=== PATIENT | female | born 1970 | race American Indian/Alaskan Native ===

== ENCOUNTER 2016-12-01 09:04 | Day surgery (SDC) | payer BC ==
[2016-12-01 10:18] VITALS: BMI 20.7
[2016-12-01] MEDS ORDERED: Lidocaine 2% Inj (20ml) ONE (12:16)
[2016-12-01] MEDS ORDERED: Propofol 10 mg/ml Inj (20 ML) ONE ×2 (12:17→12:32)
[2016-12-01 13:30] VITALS: O2SAT 100
[2016-12-01 14:14] VITALS: BP 112/66; PULSE 89; RESP 21; TEMP 97.5
== END 2016-12-01 14:10 | disposition home or self-care (01) ==
LOC: C.ENDO 09:04
PROVIDERS: ATTEND Internal Medicine Gastroenterology
DX: K29.70 Gastritis, unspecified, without bleeding (principal); K64.8 Other hemorrhoids; K57.90 Diverticulosis of intestine, part unspecified, without perforation or abscess without bleeding
CPT/HCPCS: 43239; 45378; 84703; 88305; 88313; 88342; J2704

== ENCOUNTER 2017-02-01 14:09 | Emergency (ER) | payer BC ==
[2017-02-01 14:09] VITALS: BMI 20.7
[2017-02-01 14:19] VITALS: TEMP 98.1; O2SAT 98
--- NOTE | 2017-02-01 14:48 | C.PDOC ---
History Of Present Illness 46 yr old female presents to the ER for new onset of pain and swelling to the front of left lower leg for the past few days. Patient states she walks a lot and the pain is worse when she points her foot. Patient denies trauma or injury , back pain, weakness or numbness. Time Seen by Provider: 02/01/17 14:29 Chief Complaint (Nursing): Lower Extremity Problem/Injury History Per: Patient History/Exam Limitations: no limitations Onset/Duration Of Symptoms: Days (Few days. 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 Musculoskeletal: Positive for: Leg Pain (Pain and swelling to the front of left lower leg ), Foot Pain (Pain when pointing the left foot ). Negative for: Back Pain Neurological: Negative for: Weakness, Numbness Physical Exam - Physical Exam Appears: Non-toxic, No Acute Distress Skin: Warm, Dry, No Rash Head: Atraumatic, Normacephalic Oral Mucosa: Moist Extremity: No Calf Tenderness, Other (Left Lower Leg - Mild swelling to the anterior distal aspect. Tenderness, reproducibe pain. No erythema. Reproducible pain with dorsi flexion. ) Pulses: Left Dorsalis Pedis: Normal, Right Dorsalis Pedis: Normal Neurological/Psych: Oriented x3, Normal Speech, Normal Motor ED Course And Treatment O2 Sat by Pulse Oximetry: 98 (RA ) Pulse Ox Interpretation: Normal Medical Decision Making Medical Decision Making: PLAN: * Toradol IM NOTE: Patient was offered XRays but chose to decline. Advised NSAIDs, ice therapy and crutches. Disposition Counseled Patient/Family Regarding: Diagnosis, Need For Followup, Rx Given - Disposition Referrals: [facility] [Outside] [facility] [Outside] Disposition: HOME/ ROUTINE Disposition Time: 14:46 Condition: IMPROVED Prescriptions: Cyclobenzaprine [Flexeril] 10 mg PO TID #15 tab Ibuprofen [Motrin] 600 mg PO Q6 #30 tab Instructions: Tendinitis (ED) Forms: Work Excuse - Clinical Impression Clinical Impression: Tibialis tendonitis - Scribe Statement The provider has reviewed the documentation as recorded by the Chiibe Jennifer Simmons Provider Attestation: All medical record entries made by the Ernie were at my direction and personally dictated by me. I have reviewed the chart and agree that the record accurately reflects my personal performance of the history, physical exam, medical decision making, and the department course for this patient. I have also personally directed, reviewed, and agree with the discharge instructions and disposition. Orthopedic Care Application Of:: Gal Bandage - Ambulation Aids Ambulation Aids: Adult Crutches
[2017-02-01 15:18] VITALS: BP 124/72; PULSE 79; RESP 18
== END 2017-02-01 15:19 | disposition home or self-care (01) ==
LOC: SUPCPDRO 14:09 → C.ER 14:09
DX: M76.822 Posterior tibial tendinitis, left leg (principal)
CPT/HCPCS: 96372; 97116; 97161; 99285; G8978; G8979; G8980; J1885

== ENCOUNTER 2017-06-21 16:40 | Emergency (ER) | payer BC ==
[2017-06-21 16:40] VITALS: BMI 20.7
[2017-06-21 17:08] VITALS: BP 98/70; PULSE 83; RESP 20; TEMP 97.9; O2SAT 98
[2017-06-21 17:37] LABS: RBC URINE 10 /hpf (0-3); URINE BILIRUBIN NEGATIVE (NEGATIVE); URINE BLOOD 1+ (NEGATIVE); URINE COLOR Straw (YELLOW); URINE GLUCOSE (UA) NORMAL (Normal); URINE KETONE NEGATIVE (NEGATIVE); URINE LEUKOCYTE ESTERASE NEG Leu/uL (Negative); URINE PROTEIN NEGATIVE (NEGATIVE); URINE UROBILINOGEN NORMAL mg/dL (0.2-1.0); WBC URINE 1 /hpf (0-5)
--- NOTE | 2017-06-21 17:46 | C.PDOC ---
History Of Present Illness 47 year old female presents to the ED for evaluation of right lower back pain x 2 weeks. Patient states pain is worse with movement and localized. She denies known trauma. Symptoms are worse with sitting. Denies fever, burning, urinary frequency, or other associated symptoms. R LOWER BACK PAIN X 2 WEEKS. WORSE W MOVEMENT. LOCALIZED. NO KNOWN TRAUMA. WORSE W SITTING. NO FEVER, BURNING FREQ OTHER ASSOC SX EXAM BACK +R LOWER BACK TEND W SPASM LIMITED ROM NO CVAT NO SPINAL TEND REMAINDER NEG Time Seen by Provider: 06/21/17 17:10 Chief Complaint (Nursing): Back Pain History Per: Patient History/Exam Limitations: no limitations Onset/Duration Of Symptoms: Other (2 weeks ) Current Symptoms Are (Timing): Still Present Quality Of Discomfort: "Pain" Previous Symptoms: Back Pain Associated Symptoms: denies: Incontinence, New Weakness, New Numbness Exacerbating Factor(s): Movement, Sitting Additional History Per: Patient Past Medical History Reviewed: Historical Data, Nursing Documentation, Vital Signs Vital Signs: Last Vital Signs Temp 97.9 F 06/21/17 17:05 Pulse 83 06/21/17 17:05 Resp 20 06/21/17 17:05 BP 98/70 L 06/21/17 17:05 Pulse Ox 98 06/21/17 19:52 - Medical History PMH: 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), Graves' Disease Denies: Colonic Polyps, Fractures, TIA Surgical History: Endoscopy - [facility] Procedures SEPTOPLASTY NEC (12/10/14) TURBINECTOMY NEC (12/10/14) Family History: States: Unknown Family Hx - Social History Hx Tobacco Use: No Hx Alcohol Use: No Hx Substance Use: Yes - Immunization History Hx Tetanus Toxoid Vaccination: Yes Hx Influenza Vaccination: Yes Hx Pneumococcal Vaccination: Yes Review Of Systems Constitutional: Negative for: Fever, Chills Genitourinary: Negative for: Dysuria, Frequency Musculoskeletal: Positive for: Back Pain Physical Exam - Physical Exam Appears: Non-toxic, No Acute Distress Skin: Normal Color, Warm, Dry Head: Atraumatic, Normacephalic Chest: Symmetrical, No Deformity, No Tenderness Cardiovascular: Rhythm Regular Respiratory: Normal Breath Sounds Back: No CVA Tenderness, No Vertebral Tenderness, Other (+R LOWER BACK TEND W SPASM LIMITED ROM NO CVAT NO SPINAL TEND) Extremity: Normal ROM, Capillary Refill (less than 2 seconds ) Neurological/Psych: Oriented x3, Normal Speech, Normal Cognition Gait: Steady ED Course And Treatment O2 Sat by Pulse Oximetry: 98 (on RA) Pulse Ox Interpretation: Normal Progress Note: UA ordered and reviewed,. Flexeril PO, Lidoderm TD, Toradol IM administered. Disposition Counseled Patient/Family Regarding: Studies Performed, Diagnosis, Need For Followup, Rx Given - Disposition Referrals: YOUR,PMD [Other] Disposition: HOME/ ROUTINE Disposition Time: 17:51 Condition: IMPROVED Additional Instructions: APPLY PATCH TO AFFECTED AREA. MAX 3 PATCHES AT A TIME. REMOVE PATCH 12 HOURS AFTER INITIAL APPLICATION. ALTERNATE 12 HOURS ON, 12 HOURS O Prescriptions: Cyclobenzaprine [Flexeril] 10 mg PO TID #15 tab Ibuprofen [Motrin] 600 mg PO Q6 #30 tab Lidocaine 5% [Lidoderm] 1 ea TD PRN PRN #10 patch PRN Reason: Pain, Moderate (4-7) Instructions: Acute Low Back Pain (ED) Forms: [facility] (Lithuanian), Work Excuse - Clinical Impression Clinical Impression: Low back pain - Scribe Statement The provider has reviewed the documentation as recorded by the Scribe (Rhona Ruth) Provider Attestation: All medical record entries made by the Scribe were at my direction and personally dictated by me. I have reviewed the chart and agree that the record accurately reflects my personal performance of the history, physical exam, medical decision making, and the department course for this patient. I have also personally directed, reviewed, and agree with the discharge instructions and disposition.
[2017-06-21] MEDS ORDERED: Lidocaine 5% Patch TD STA (17:53)
[2017-06-21] MEDS ORDERED: Lidocaine 5% Patch TD ONE (18:02)
== END 2017-06-21 18:04 | disposition home or self-care (01) ==
LOC: C.ER 16:40
DX: M54.5 Low back pain (principal)
CPT/HCPCS: 81001; 84703; 96372; 99284; J1885

== ENCOUNTER 2017-09-12 09:38 | Emergency (ER) | payer BC ==
[2017-09-12 09:39] VITALS: BMI 20.7
[2017-09-12 09:47] VITALS: RESP 20; TEMP 97.8; O2SAT 99
[2017-09-12] MEDS ORDERED: Acetaminophen-Codeine 300/30 mg Tab PO STA (10:10)
[2017-09-12] MEDS ORDERED: Acetaminophen-Codeine 300/30 mg Tab PO ONE (10:35)
[2017-09-12 11:06] LABS: SQUAMOUS EPITHIAL 4 /hpf (0-5); URINE BACTERIA RARE (<OCC); URINE BILIRUBIN NEGATIVE (NEGATIVE); URINE BLOOD 2+ (NEGATIVE); URINE CLARITY Clear (Clear); URINE COLOR Straw (YELLOW); URINE GLUCOSE (UA) NORMAL (Normal); URINE LEUKOCYTE ESTERASE NEG Leu/uL (Negative); URINE NITRATE NEGATIVE (NEGATIVE); URINE PROTEIN NEGATIVE (NEGATIVE); URINE UROBILINOGEN NORMAL mg/dL (0.2-1.0)
--- NOTE | 2017-09-12 11:22 | C.PDOC ---
History Of Present Illness 47 yr old female presents to the ER with complaints of right sided back pain radiating down the right leg for the past 1 week. Patient states the pain is worse with movement and also has constipation. Patient denies trauma, fever, nausea, vomiting, abdominal pain, diarrhea, dysuria, bowel or bladder incontinence, hematuria, weakness or numbness. 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 Constitutional: Negative for: Fever Gastrointestinal: Positive for: Constipation. Negative for: Nausea, Vomiting, Abdominal Pain, Diarrhea Genitourinary: Negative for: Dysuria, Incontinence, Hematuria Musculoskeletal: Positive for: Back Pain (right sided back pain, radiating down the right leg) Neurological: Negative for: Weakness, Numbness Physical Exam - Physical Exam Appears: Non-toxic, No Acute Distress Skin: Warm, Dry, No Rash Eye(s): bilateral: Normal Inspection, PERRL, EOMI Oral Mucosa: Moist Cardiovascular: Rhythm Regular, No Murmur Respiratory: Normal Breath Sounds, No Rales, No Rhonchi, No Stridor, No Wheezing Gastrointestinal/Abdominal: Normal Exam, Soft, No Tenderness, No Guarding, No Rebound Back: Straight Leg Raising (right leg, 30 degree), Other (+ right paralumbar tenderness, right glutial tenderness) Extremity: Normal ROM, No Calf Tenderness, Capillary Refill (<2 secs), No Swelling Pulses: Left Dorsalis Pedis: Normal, Right Dorsalis Pedis: Normal Neurological/Psych: Oriented x3, Normal Speech, Normal Motor, Normal Sensation, Normal Reflexes ED Course And Treatment O2 Sat by Pulse Oximetry: 99 (RA) Pulse Ox Interpretation: Normal - Other Rad X-Ray - LS Spine X-Ray: Viewed By Me, Read By Radiologist Interpretation: PROCEDURE: Radiographs of the Lumbar Spine. HISTORY: back pain. COMPARISON: None available. FINDINGS: BONES: Alignment appears satisfactory. No listhesis. No acute displaced fracture identified. DISC SPACES : Unremarkable. OTHER FINDINGS: None. IMPRESSION: No acute displaced fracture or subluxation identified. Medical Decision Making Medical Decision Making: IMPRESSION: Sciatica, constipation PLAN: * X-Ray - LS Spine * Urinalysis * Flexeril PO * Motrin PO * Tylenol/Codeine PO NOTE: * On reevaluation, patient reports improvement of symptoms * Patient is discharged home with pain management * Instructed to follow up with PMD in 2 days for further evaluation Disposition Counseled Patient/Family Regarding: Studies Performed, Diagnosis, Need For Followup, Rx Given - Disposition Referrals: Cody Foote MD [Staff Provider] - Disposition: HOME/ ROUTINE Disposition Time: 12:10 Condition: STABLE Additional Instructions: follow up with your doctor in 2 days call to make an appointment take medications as prescribed return to ER if symptoms worsens or progress Prescriptions: Acetaminophen/Codeine [Tylenol/Codeine 300 MG/30 MG] 1 tab PO Q6H PRN #12 tab PRN Reason: Pain, Severe (8-10) Naproxen [Naprosyn] 500 mg PO BID PRN #16 tab PRN Reason: Pain, Moderate (4-7) Polyethylene Glycol 3350 [Miralax] 17 g PO DAILY PRN #10 packet PRN Reason: Constipation Instructions: Sciatica, Constipation, Adult (DC) Forms: General Discharge Instructions, [facility] (Maori), Work Excuse - Clinical Impression Clinical Impression: Sciatica, Constipation - Scribe Statement The provider has reviewed the documentation as recorded by the Ernie Simmons Provider Attestation: All medical record entries made by the Scribe were at my direction and personally dictated by me. I have reviewed the chart and agree that the record accurately reflects my personal performance of the history, physical exam, medical decision making, and the department course for this patient. I have also personally directed, reviewed, and agree with the discharge instructions and disposition.
--- NOTE | 2017-09-12 12:08 | RAD ---
PROCEDURE: Radiographs of the Lumbar Spine. HISTORY: back pain COMPARISON: None available. FINDINGS: BONES: Alignment appears satisfactory. No listhesis. No acute displaced fracture identified. DISC SPACES: Unremarkable. OTHER FINDINGS: None. IMPRESSION: No acute displaced fracture or subluxation identified.
[2017-09-12 12:25] VITALS: BP 127/80; PULSE 80
== END 2017-09-12 12:28 | disposition home or self-care (01) ==
LOC: C.ER 09:38
DX: M54.30 Sciatica, unspecified side (principal); K59.00 Constipation, unspecified

== ENCOUNTER 2018-02-09 14:36 | Inpatient (IN) | payer BC ==
[2018-02-09 14:37] VITALS: BMI 20.7
[2018-02-09] MEDS ORDERED: Sodium Chloride 0.9% 1,000 ML IV STA (16:32)
--- NOTE | 2018-02-09 16:46 | C.PDOC ---
History Of Present Illness 47-year-old female, presents to the emergency department with complaints of feeling near syncopal. 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 She is currently complaining of a headache and generalized weakness. She denies nausea/vomiting, abdominal pain or any other associated symptoms. No other complaints at this time. Time Seen by Provider: 02/09/18 15:45 Chief Complaint (Nursing): Dizziness/Lightheaded History Per: Patient History/Exam Limitations: no limitations Past Medical History Reviewed: Historical Data, Nursing Documentation, Vital Signs Vital Signs: Last Vital Signs Temp 98 F 02/09/18 14:54 Pulse 73 02/09/18 14:54 Resp 18 02/09/18 14:54 BP 111/79 02/09/18 14:54 Pulse Ox 100 02/09/18 18:52 - Medical History PMH: Back Problems, Graves' Disease Surgical History: Endoscopy - [facility] Procedures SEPTOPLASTY NEC (12/10/14) TURBINECTOMY NEC (12/10/14) Family History: States: No Known Family Hx - Social History Hx Tobacco Use: No Hx Alcohol Use: No Hx Substance Use: Yes (marijuana) - Immunization History Hx Tetanus Toxoid Vaccination: No Hx Influenza Vaccination: No Hx Pneumococcal Vaccination: No Review Of Systems Constitutional: Negative for: Fever, Chills Cardiovascular: Positive for: Light Headedness Respiratory: Negative for: Shortness of Breath Gastrointestinal: Negative for: Nausea, Vomiting Musculoskeletal: Negative for: Back Pain Neurological: Negative for: Weakness, Numbness Physical Exam - Physical Exam Appears: Non-toxic, No Acute Distress Skin: Normal Color, Warm, Dry, No Rash Head: Atraumatic, Normacephalic Eye(s): bilateral: Normal Inspection, PERRL, EOMI Nose: Normal Oral Mucosa: Moist Lips: Normal Appearing Neck: Normal ROM Cardiovascular: Rhythm Regular, No Murmur Respiratory: Normal Breath Sounds, No Accessory Muscle Use Gastrointestinal/Abdominal: Soft, No Tenderness Extremity: Normal ROM, No Deformity, No Swelling Neurological/Psych: Oriented x3, Normal Speech ED Course And Treatment - Laboratory Results Result Diagrams: 02/09/18 16:45 02/09/18 16:45 O2 Sat by Pulse Oximetry: 100 Pulse Ox Interpretation: Normal (RA) - CT Scan/US CT HEAD Other Rad Studies (CT/US): Read By Radiologist, Radiology Report Reviewed CT/US Interpretation: Accession No. : [id number]. Patient Name / ID : JOSE RM / [id number]. Exam Date : 02/09/2018 16:55:33 ( Approved ). Study Comment : Sex / Age : F / 47Y. Creator : Lucy Mustafa. Dictator : Yuliet Dubon V. Concert Pianist : Social Sciences Instructor : Yuliet Dubon V. Approver2 : Report Date : 02/09/2018 16:55:20. My Comment : *. Date of service: 02/09/2018. PROCEDURE: CT HEAD WITHOUT CONTRAST. HISTORY: near syncope. COMPARISON: 12/12/2014. TECHNIQUE: Axial computed tomography images were obtained through the head/brain without intravenous contrast. Radiation dose: Total exam DLP = 820 mGy-cm. This CT exam was performed using one or more of the following dose reduction techniques: Automated exposure control, adjustment of the mA and/or kV according to patient size, and/or use of iterative reconstruction technique. FINDINGS: HEMORRHAGE: No intracranial hemorrhage. BRAIN: No mass effect or edema. No atrophy or chronic microvascular ischemic changes. VENTRICLES: Unremarkable. No hydrocephalus. CALVARIUM: Unremarkable. PARANASAL SINUSES: Unremarkable as visualized. No significant inflammatory changes. MASTOID AIR CELLS: Unremarkable as visualized. No inflammatory changes. OTHER FINDINGS: None. IMPRESSION: Normal CT of the Head. No interval pathology noted Chest CTA Other Rad Studies (CT/US): Read By Radiologist, Radiology Report Reviewed CT/US Interpretation: Accession No. : [id number]. Patient Name / ID : JOSE RM / [id number]. Exam Date : 02/09/2018 18:20:43 ( Approved ). Study Comment : Sex / Age : F / 47Y. Creator : Bayron Cross MD. Dictator : Bayron Cross MD. Concert Pianist : Social Sciences Instructor : Bayron Cross MD. Approver2 : Report Date : 02/09/2018 18:49:51. My Comment : . This report is currently processing and HAS NOT BEEN OFFICIALLY SIGNED BY THE PHYSICIAN - ESTIMATED TIME OF APPROVAL IS 02/09/2018 18:55. Date of service: 02/09/2018. PROCEDURE: CT Chest with contrast (Pulmonary Angiogram). HISTORY : near syncope, elevated D-dimer. COMPARISON: None available. TECHNIQUE: Axial computed tomography images were obtained of the chest in the pulmonary arterial phase of enhancement. Coronal and sagittal reformatted images were created and reviewed. Maximum intensity projection (MIP) reconstructed images in the following planes: Coronal and sagittal. Intravenous contrast dose: 100 cc Visipaque 320. Mean Hounsfield unit values in the main pulmonary artery: 279.36. Radiation dose: Total exam DLP = 174.61 mGy-cm. This CT exam was performed using one or more of the following dose reduction techniques: Automated exposure control, adjustment of the mA and/or kV according to patient size, and/or use of iterative reconstruction technique. FINDINGS: PULMONARY ARTERIES: Unremarkable. No pulmonary embolism. AORTA: No acute findings. No thoracic aortic aneurysm. LUNGS: Unremarkable. No nodule, mass or pulmonary consolidation. PLEURAL SPACES: Unremarkable. No effusion or pneumothorax. HEART: Unremarkable. No cardiomegaly. No significant pericardial effusion. LYMPH NODES: No lymphadenopathy. BONES, CHEST WALL: Unremarkable. No fracture or destructive lesion. OTHER FINDINGS: Unremarkable. IMPRESSION: Unremarkable CT pulmonary angiogram. No pulmonary embolus. Medical Decision Making Medical Decision Making: Plan: * CT Chest, Head * EKG * Bloodwork * CHest X-Ray * HCG/UA * Reassess and Disposition * * * case was d/w who accepted patient to ho service for tele obs Disposition - Disposition Disposition: HOSPITALIZED Disposition Time: 18:53 Condition: FAIR Forms: [facility] (Telugu) - Clinical Impression Clinical Impression: Near syncope - Scribe Statement The provider has reviewed the documentation as recorded by the Scribe (Evita Gramajo) All medical record entries made by the Scribe were at my direction and personally dictated by me. I have reviewed the chart and agree that the record accurately reflects my personal performance of the history, physical exam, medical decision making, and the department course for this patient. I have also personally directed, reviewed, and agree with the discharge instructions and disposition. Decision To Admit - Pt Status Changed To: Hospital Disposition Of: Observation - . Bed Request Type: Telemetry Admitting Physician: Madina Ruth Patient Diagnosis: Near syncope
[2018-02-09 16:48] LABS: BASO % 0.3 % (0.0-2.0); EOS # 0.1 K/uL (0.0-0.7); EOS % 1.9 % (0.0-4.0); HEMOGLOBIN 13.7 g/dL (11.0-16.0); LYMPH # 2.5 K/uL (1.0-4.3); LYMPH % 34.6 % (20.0-40.0); MEAN CELL VOLUME 85.7 fL (81.0-99.0); MEAN CORPUSCULAR HEMOGLOBIN 29.4 pg (27.0-31.0); MEAN CORPUSCULAR HGB CONC 34.3 g/dL (33.0-37.0); MEAN PLATELET VOLUME 9.6 fL (7.2-11.7); MONO # 0.7 K/uL (0.0-0.8); MONO % 9.6 % (0.0-10.0); NEUT # 3.9 K/uL (1.8-7.0); NEUT % 53.6 % (50.0-75.0); RBC 4.64 Mil/uL (3.80-5.20); WHITE BLOOD COUNT 7.3 K/uL (4.8-10.8)
[2018-02-09 16:53] LABS: SQUAMOUS EPITHIAL 2 /hpf (0-5); URINE BACTERIA MOD (<OCC); URINE BILIRUBIN NEGATIVE (NEGATIVE); URINE BLOOD 2+ (NEGATIVE); URINE CLARITY Hazy (Clear); URINE COLOR Yellow (YELLOW); URINE GLUCOSE (UA) NORMAL (Normal); URINE LEUKOCYTE ESTERASE 1+ Leu/uL (Negative); URINE PROTEIN NEGATIVE (NEGATIVE); URINE UROBILINOGEN NORMAL mg/dL (0.2-1.0)
[2018-02-09 16:54] LABS: HCG,QUALITATIVE URINE NEGATIVE (NEGATIVE)
--- NOTE | 2018-02-09 17:03 | CT ---
Date of service: 02/09/2018 PROCEDURE: CT HEAD WITHOUT CONTRAST. HISTORY: near syncope COMPARISON: 12/12/2014 TECHNIQUE: Axial computed tomography images were obtained through the head/brain without intravenous contrast. Radiation dose: Total exam DLP = 820 mGy-cm. This CT exam was performed using one or more of the following dose reduction techniques: Automated exposure control, adjustment of the mA and/or kV according to patient size, and/or use of iterative reconstruction technique. FINDINGS: HEMORRHAGE: No intracranial hemorrhage. BRAIN: No mass effect or edema. No atrophy or chronic microvascular ischemic changes. VENTRICLES: Unremarkable. No hydrocephalus. CALVARIUM: Unremarkable. PARANASAL SINUSES: Unremarkable as visualized. No significant inflammatory changes. MASTOID AIR CELLS: Unremarkable as visualized. No inflammatory changes. OTHER FINDINGS: None. IMPRESSION: Normal CT of the Head. No interval pathology noted
--- NOTE | 2018-02-09 17:04 | RAD ---
Date of service: 02/09/2018 PROCEDURE: CHEST RADIOGRAPH, 1 VIEW HISTORY: near syncope COMPARISON: None available. FINDINGS: LUNGS: Clear. PLEURA: No pneumothorax or pleural fluid seen. CARDIOVASCULAR: Normal. OSSEOUS STRUCTURES: No significant abnormalities. VISUALIZED UPPER ABDOMEN: Normal. OTHER FINDINGS: None. IMPRESSION: No active disease.
[2018-02-09 17:07] LABS: PROTHROMBIN TIME 11.1 SECONDS (9.7-12.2)
[2018-02-09 17:17] LABS: ALB/GLOB RATIO 1.5 (1.0-2.1); ALBUMIN 3.9 g/dL (3.5-5.0); ALT/SGPT 28 U/L (9-52); AST/SGOT 17 U/L (14-36); BLOOD UREA NITROGEN 13 mg/dL (7-17); CK-MB 0.38 ng/mL (0.0-3.38); GFR AFRICAN-AMERICAN > 60; GFR NON-AFRICAN AMERICAN > 60
[2018-02-09] MEDS ORDERED: Iodixanol 320 MG/ML 100 ML BOTTLE IV ONE (18:01)
--- NOTE | 2018-02-09 18:51 | CT ---
Date of service: 02/09/2018 PROCEDURE: CT Chest with contrast (Pulmonary Angiogram) HISTORY: near syncope, elevated D-dimer COMPARISON: None available. TECHNIQUE: Axial computed tomography images were obtained of the chest in the pulmonary arterial phase of enhancement. Coronal and sagittal reformatted images were created and reviewed. Maximum intensity projection (MIP) reconstructed images in the following planes: Coronal and sagittal Intravenous contrast dose: 100 cc Visipaque 320. Mean Hounsfield unit values in the main pulmonary artery: 279.36 Radiation dose: Total exam DLP = 174.61 mGy-cm. This CT exam was performed using one or more of the following dose reduction techniques: Automated exposure control, adjustment of the mA and/or kV according to patient size, and/or use of iterative reconstruction technique. FINDINGS: PULMONARY ARTERIES: Unremarkable. No pulmonary embolism. AORTA: No acute findings. No thoracic aortic aneurysm. LUNGS: Unremarkable. No nodule, mass or pulmonary consolidation. PLEURAL SPACES: Unremarkable. No effusion or pneumothorax. HEART: Unremarkable. No cardiomegaly. No significant pericardial effusion. LYMPH NODES: No lymphadenopathy. BONES, CHEST WALL: Unremarkable. No fracture or destructive lesion OTHER FINDINGS: Unremarkable. IMPRESSION: Unremarkable CT pulmonary angiogram. No pulmonary embolus.
--- NOTE | 2018-02-09 20:19 | CP.PCM.HP ---
Past Patient History - Infectious Disease Hx of Infectious Diseases: None - Past Medical History & Family History Past Medical History?: Yes - Past Social History Smoking Status: Light Smoker < 10 Cigarettes Daily - CARDIAC Hx Heart Attack: No - NEUROLOGICAL Hx Transient Ischemic Attacks (TIA): No - HEENT Hx HEENT Problems: Yes Other/Comment: PRESENTLY TAKING BACTRIM FOR SINUS INFECTION - ENDOCRINE/METABOLIC Hx Endocrine Disorders: Yes - HEMATOLOGICAL/ONCOLOGICAL Hx Blood Disorders: Yes Other/Comment: GRAVES DISEASE - MUSCULOSKELETAL/RHEUMATOLOGICAL Hx Fractures: No - GASTROINTESTINAL Hx Gastrointestinal Disorders: No - PSYCHIATRIC Hx Substance Use: Yes (marijuana) - SURGICAL HISTORY Hx Surgeries: Yes Hx Section: Yes Other/Comment: deviated septum repair. ectopic surgery - ANESTHESIA Hx Anesthesia: Yes Hx Anesthesia Reactions: No Hx Malignant Hyperthermia: No Meds Allergies/Adverse Reactions: Allergies Allergy/AdvReac Type Severity Reaction Status Date / Time No Known Allergies Allergy Verified 02/09/18 14:54 Physical Exam - Constitutional Appears: Well - Head Exam Head Exam: ATRAUMATIC, NORMAL INSPECTION, NORMOCEPHALIC - Eye Exam Eye Exam: EOMI, Normal appearance, PERRL Pupil Exam: NORMAL ACCOMODATION, PERRL - ENT Exam ENT Exam: Mucous Membranes Moist, Normal Exam - Neck Exam Neck exam: Positive for: Normal Inspection - Respiratory Exam Respiratory Exam: Decreased Breath Sounds - Cardiovascular Exam Cardiovascular Exam: REGULAR RHYTHM, +S1, +S2 - GI/Abdominal Exam GI & Abdominal Exam: Diminished Bowel Sounds, Soft - Rectal Exam Rectal Exam: Deferred Results - Vital Signs Recent Vital Signs: Last Vital Signs Temp 98.4 F 02/09/18 19:41 Pulse 75 02/09/18 19:41 Resp 18 02/09/18 19:41 BP 123/73 02/09/18 19:41 Pulse Ox 100 02/09/18 19:41 - Labs Result Diagrams: 02/09/18 16:45 02/09/18 16:45 Labs: Laboratory Results - last 24 hr 02/09/18 02/09/18 02/09/18 16:45 16:45 16:45 WBC 7.3 RBC 4.64 Hgb 13.7 Hct 39.8 MCV 85.7 MCH 29.4 MCHC 34.3 RDW 13.0 Plt Count 182 MPV 9.6 Neut % (Auto) 53.6 Lymph % (Auto) 34.6 [place] % (Auto) 9.6 Eos % (Auto) 1.9 Baso % (Auto) 0.3 Neut # (Auto) 3.9 Lymph # (Auto) 2.5 [place] # (Auto) 0.7 Eos # (Auto) 0.1 Baso # (Auto) 0.0 PT INR APTT D-Dimer, Quantitative Sodium 138 Potassium 3.8 Chloride 104 Carbon Dioxide 24 Anion Gap 14 BUN 13 Creatinine 0.5 L Est GFR ( Amer) > 60 Est GFR (Non-Af Amer) > 60 Random Glucose 118 H Calcium 9.0 Total Bilirubin 0.4 AST 17 ALT 28 Alkaline Phosphatase 66 Total Creatine Kinase 38 CK-MB (Mass) 0.38 Troponin I < 0.0120 Total Protein 6.5 Albumin 3.9 Globulin 2.6 Albumin/Globulin Ratio 1.5 Urine Color Yellow Urine Clarity Hazy Urine pH 5.0 Ur Specific [place] 1.020 Urine Protein Negative Urine Glucose (UA) Normal Urine Ketones Negative Urine Blood 2+ H Urine Nitrate Positive H Urine Bilirubin Negative Urine Urobilinogen Normal Ur Leukocyte Esterase 1+ H Urine WBC (Auto) 17 H Urine RBC (Auto) 4 H Ur Squamous Epith Cells 2 Urine Bacteria Mod H Urine HCG, Qual Negative 02/09/18 16:46 WBC RBC Hgb Hct MCV MCH MCHC RDW Plt Count MPV Neut % (Auto) Lymph % (Auto) [place] % (Auto) Eos % (Auto) Baso % (Auto) Neut # (Auto) Lymph # (Auto) [place] # (Auto) Eos # (Auto) Baso # (Auto) PT 11.1 INR 1.0 APTT 27 D-Dimer, Quantitative 582 H Sodium Potassium Chloride Carbon Dioxide Anion Gap BUN Creatinine Est GFR ( Amer) Est GFR (Non-Af Amer) Random Glucose Calcium Total Bilirubin AST ALT Alkaline Phosphatase Total Creatine Kinase CK-MB (Mass) Troponin I Total Protein Albumin Globulin Albumin/Globulin Ratio Urine Color Urine Clarity Urine pH Ur Specific [place] Urine Protein Urine Glucose (UA) Urine Ketones Urine Blood Urine Nitrate Urine Bilirubin Urine Urobilinogen Ur Leukocyte Esterase Urine WBC (Auto) Urine RBC (Auto) Ur Squamous Epith Cells Urine Bacteria Urine HCG, Qual
[2018-02-10 01:50] LABS: CK-MB 0.26 ng/mL (0.0-3.38)
--- NOTE | 2018-02-10 06:43 | CP.PCM.CON ---
History of Present Illness - History of Present Illness History of Present Illness: CONSULTATION DICTATED NEAR SYNCOPAL ATTACK- NEURO - SEIZURES/ VBI -TIA UA - UTI REC APPROPRIAT ANTIBIOTICS AND HYDRATION CAROTID/EEG/MRI AND BLOOD WORK UP LONG STANDING L/S DISC DISEASE - WORK UP AN OP Past Patient History - Infectious Disease Hx of Infectious Diseases: None - Past Medical History & Family History Past Medical History?: Yes - Past Social History Smoking Status: Light Smoker < 10 Cigarettes Daily - CARDIAC Hx Heart Attack: No - NEUROLOGICAL Hx Transient Ischemic Attacks (TIA): No - HEENT Hx HEENT Problems: Yes Other/Comment: PRESENTLY TAKING BACTRIM FOR SINUS INFECTION - ENDOCRINE/METABOLIC Hx Endocrine Disorders: Yes - HEMATOLOGICAL/ONCOLOGICAL Hx Blood Disorders: Yes Other/Comment: GRAVES DISEASE - MUSCULOSKELETAL/RHEUMATOLOGICAL Hx Fractures: No - GASTROINTESTINAL Hx Gastrointestinal Disorders: No - PSYCHIATRIC Hx Substance Use: Yes (marijuana) - SURGICAL HISTORY Hx Surgeries: Yes Hx Section: Yes Other/Comment: deviated septum repair. ectopic surgery - ANESTHESIA Hx Anesthesia: Yes Hx Anesthesia Reactions: No Hx Malignant Hyperthermia: No Meds Allergies/Adverse Reactions: Allergies Allergy/AdvReac Type Severity Reaction Status Date / Time No Known Allergies Allergy Verified 02/09/18 14:54 - Medications Medications: Current Medications Aspirin (Aspirin Chewable) 81 mg PO DAILY JAYDE Enoxaparin Sodium (Lovenox) 40 mg SC DAILY JAYDE Temazepam (Restoril) 15 mg PO HS PRN PRN Reason: Insomnia Last Admin: 02/09/18 22:36 Dose: 15 mg Results - Vital Signs Recent Vital Signs: Last Vital Signs Temp 98.3 F 02/09/18 23:15 Pulse 72 02/10/18 04:19 Resp 20 02/09/18 23:15 BP 132/83 02/09/18 23:15 Pulse Ox 99 02/09/18 23:15 - Labs Result Diagrams: 02/09/18 16:45 02/09/18 16:45 Labs: Laboratory Results - last 24 hr 02/09/18 02/09/18 02/09/18 16:45 16:45 16:45 WBC 7.3 RBC 4.64 Hgb 13.7 Hct 39.8 MCV 85.7 MCH 29.4 MCHC 34.3 RDW 13.0 Plt Count 182 MPV 9.6 Neut % (Auto) 53.6 Lymph % (Auto) 34.6 [place] % (Auto) 9.6 Eos % (Auto) 1.9 Baso % (Auto) 0.3 Neut # (Auto) 3.9 Lymph # (Auto) 2.5 [place] # (Auto) 0.7 Eos # (Auto) 0.1 Baso # (Auto) 0.0 PT INR APTT D-Dimer, Quantitative Sodium 138 Potassium 3.8 Chloride 104 Carbon Dioxide 24 Anion Gap 14 BUN 13 Creatinine 0.5 L Est GFR ( Amer) > 60 Est GFR (Non-Af Amer) > 60 Random Glucose 118 H Calcium 9.0 Total Bilirubin 0.4 AST 17 ALT 28 Alkaline Phosphatase 66 Total Creatine Kinase 38 CK-MB (Mass) 0.38 Troponin I < 0.0120 Total Protein 6.5 Albumin 3.9 Globulin 2.6 Albumin/Globulin Ratio 1.5 Urine Color Yellow Urine Clarity Hazy Urine pH 5.0 Ur Specific [place] 1.020 Urine Protein Negative Urine Glucose (UA) Normal Urine Ketones Negative Urine Blood 2+ H Urine Nitrate Positive H Urine Bilirubin Negative Urine Urobilinogen Normal Ur Leukocyte Esterase 1+ H Urine WBC (Auto) 17 H Urine RBC (Auto) 4 H Ur Squamous Epith Cells 2 Urine Bacteria Mod H Urine HCG, Qual Negative 02/09/18 02/10/18 16:46 01:09 WBC RBC Hgb Hct MCV MCH MCHC RDW Plt Count MPV Neut % (Auto) Lymph % (Auto) [place] % (Auto) Eos % (Auto) Baso % (Auto) Neut # (Auto) Lymph # (Auto) [place] # (Auto) Eos # (Auto) Baso # (Auto) PT 11.1 INR 1.0 APTT 27 D-Dimer, Quantitative 582 H Sodium Potassium Chloride Carbon Dioxide Anion Gap BUN Creatinine Est GFR ( Amer) Est GFR (Non-Af Amer) Random Glucose Calcium Total Bilirubin AST ALT Alkaline Phosphatase Total Creatine Kinase 33 CK-MB (Mass) 0.26 Troponin I < 0.0120 Total Protein Albumin Globulin Albumin/Globulin Ratio Urine Color Urine Clarity Urine pH Ur Specific [place] Urine Protein Urine Glucose (UA) Urine Ketones Urine Blood Urine Nitrate Urine Bilirubin Urine Urobilinogen Ur Leukocyte Esterase Urine WBC (Auto) Urine RBC (Auto) Ur Squamous Epith Cells Urine Bacteria Urine HCG, Qual
[2018-02-10 08:37] LABS: FREE T4 2.27 ng/dL (0.78-2.19)
[2018-02-10 08:43] LABS: CK-MB 0.26 ng/mL (0.0-3.38)
[2018-02-10 09:34] LABS: PROLACTIN 23.3 ng/mL (3.0-18.9)
--- NOTE | 2018-02-10 11:12 | MRI ---
Date of service: 02/10/2018 PROCEDURE: MRI BRAIN WITHOUT CONTRAST HISTORY: Headache, evaluate mesial temporal lobes COMPARISON: Noncontrast head CT from 02/09/2018 TECHNIQUE: Multiplanar, multisequence MR images of the brain were obtained without intravenous contrast enhancement. FINDINGS: HEMORRHAGE: None DWI: No evidence of an acute or early subacute infarction. BRAIN PARENCHYMA: [place]-white matter differentiation is preserved. There is no mass, mass effect or abnormal extra-axial fluid collection. There is no territorial infarction. The midline sagittal structures are normal. VENTRICLES: The ventricles are normal in size, shape and configuration. CRANIUM: There is normal bone marrow signal pattern. ORBITS: Grossly unremarkable. PARANASAL SINUSES/MASTOIDS: Mild mucosal thickening in the right maxillary sinus. The remaining included paranasal sinuses are clear. The mastoid air cells are clear. VASCULAR SYSTEM: There are normal signal voids in the larger intracranial arteries. OTHER FINDINGS: None. IMPRESSION: No acute intracranial abnormality.
--- NOTE | 2018-02-10 11:24 | CP.PCM.PN ---
Subjective - Date & Time of Evaluation Date of Evaluation: 02/10/18 Time of Evaluation: 11:21 - Subjective Subjective: PGY-[address] Pelon Ruth Patient seen and examined at bedside. Per nursing, no acute events occurred overnight. Objective - Vital Signs/Intake and Output Vital Signs (last 24 hours): Temp Pulse Resp BP Pulse Ox 98.1 F 69 20 121/79 98 02/10/18 07:00 02/10/18 07:00 02/10/18 07:00 02/10/18 07:00 02/10/18 07:00 Intake and Output: 02/10/18 02/10/18 06:59 18:59 Intake Total 120 Balance 120 - Medications Medications: Current Medications Aspirin (Aspirin Chewable) 81 mg PO DAILY JAYDE Enoxaparin Sodium (Lovenox) 40 mg SC DAILY JAYDE Temazepam (Restoril) 15 mg PO HS PRN PRN Reason: Insomnia Last Admin: 02/09/18 22:36 Dose: 15 mg - Labs Labs: 02/09/18 16:45 02/09/18 16:45 PT 11.1 SECONDS (9.7-12.2) 02/09/18 16:46 INR 1.0 02/09/18 16:46 APTT 27 SECONDS (21-34) 02/09/18 16:46 - Head Exam Head Exam: ATRAUMATIC, NORMAL INSPECTION, NORMOCEPHALIC - Eye Exam Eye Exam: EOMI, Normal appearance, PERRL Pupil Exam: NORMAL ACCOMODATION - ENT Exam ENT Exam: Mucous Membranes Moist, Normal Oropharynx - Respiratory Exam Respiratory Exam: Clear to Ausculation Bilateral, NORMAL BREATHING PATTERN. absent: Chest Wall Tenderness, Prolonged Expiratory Phase, Respiratory Distress - Cardiovascular Exam Cardiovascular Exam: REGULAR RHYTHM, +S1, +S2 - GI/Abdominal Exam GI & Abdominal Exam: Soft, Normal Bowel Sounds - Neurological Exam Neurological Exam: Alert, Awake, CN II-XII Intact, Oriented x3 - Psychiatric Exam Psychiatric exam: Normal Affect, Normal Mood - Skin Skin Exam: Dry, Intact, Normal Color Assessment and Plan - Assessment and Plan (Free Text) Assessment: 47 year old female with a past medical history of diverticulosis , internal hemorrhoids, and Graves disease who was admitted for near syncopal event. Plan: 1. ?Syncope -Neurology Dr. Villatoro consulted. Help appreciated -Cardiology Dr. Campbell consulted. Help appreciated -Carotid duplex taken. Will f/u with results Brain MRI: negative Head CT : NEGATIVE 2. Graves disease -TSH and T4 ordered. -Patient non-compliant with Methimazole medication. 3. Diverticulosis -No intervention at this time 4.Migraines -Fiorcet 1 Tab q6 -Valium 1mg PO PPX Protonix 40mg IVP Daily Lovenox 40 mg SC Daily Dispo: Patient extremely agitated and combative during interview today. Patient seeking more than recommended dose for migraine headaches. Informed patient 1800 mg of Ibuprofen at once was dangerous and not indicated at this time. All management per Dr. Pelon Ruth.
[2018-02-10] MEDS: Enoxaparin 40 mg Syringe SC SCH (11:58)
[2018-02-10] MEDS: Apap-Butalbital-Caffeine 325-50-40mg Tab PO PRN (17:32)
--- NOTE | 2018-02-10 17:46 | CON ---
Copied To: Basilio Villatoro MD Attending MD: Faustino Ruth MD DATE: 02/10/2018 LOCATION: The patient's room number 652, bed A. REASON FOR THE CONSULTATION: Syncopal attack. CHIEF COMPLAINT: The patient was brought into [facility] with history of near syncopal attack. From neurological point of view, I was called into evaluate her for further evaluation and for management. HISTORY OF PRESENTING ILLNESS: Ms. Oskar Arroyo is a 47-year-old right-handed -[place] female with sleep deprivation. 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 Suddenly, she felt shivering, following that some heat sensation all over the body. When she tried to stand up, her vision got blurred and about to fall down associating with some losing balance in her legs. She denies loss of consciousness. No history of witnessed tonic-clonic activities or any focal arrhythmic movements of her arms or legs. No bowel or bladder incontinence at the scene. No history of bitten tongue. No history of head trauma. No similar episodes happened in the past. PAST MEDICAL HISTORY: Longstanding lower back pain, being told that she has sciatica. PERSONAL HISTORY: Denies smoking or alcohol use. She is a mother of adult child of 28 years old. REVIEW OF SYSTEMS: A 12-point system being reviewed. From neuro, near syncopal attack. MEDICATIONS: Lovenox, Restoril, and aspirin. PHYSICAL EXAMINATION: VITAL SIGNS: Blood pressure 132/83, mean arterial pressure of 99, respiratory rate 18, pulse rate 72 regular, temperature 98.3. NECK: Supple. No carotid bruits. HEART: Sounds regular. Fair air entry. EXTREMITIES: No edema in legs. NEUROLOGIC: Mental status examination, she is awake, alert and orient to person, place and time. No retrograde or antegrade amnesia. No hallucination. Speech is clear. Naming, repetition, fluency, comprehension all within normal. Cranial nerve examination, visual field intact. Pupils reactive to light. Extraocular movement normal. No nystagmus. No facial sensory deficit. No facial asymmetry. Hearing is normal. Tongue is midline. Good gag. Motor examination, outstretched hand with eyes closed, no drift noted. Power is symmetric on either side. Deep tendon reflexes biceps, brachialis, triceps 2+ on either side. Both knees are 1+. Both ankles are trace on the right side, left side was 1+. Plantars are downgoing. Sensory examination, grossly intact. No dermatomal sensory loss. Examination of the spine, tenderness over the lumbosacral region. WORKUP: CT of the head reported as no acute pathology; however, her films are not retrievable in the computer at present. EKG, normal sinus rhythm. Blood workup, WBC 7.3, hemoglobin 13.7, hematocrit 38.3, platelet 182. PT 11.1, INR 1, PTT 27. D-dimer 582. Sodium 138, potassium 3.8, chloride 104, bicarbonate 24, BUN 13, creatinine 0.5 with GFR more than 60, glucose 118. Troponin 0.0120. Urine shows 2+ hematuria with positive nitrites and moderate amount of bacteria. HCG is negative. CONCLUSION: Ms. Oskar Arroyo has been presenting for neurological examination with possible vertebrobasilar insufficiency of posterior cerebral artery ischemic process versus nonconvulsive seizure. However, other possible causes of urinary tract infection, dehydration and cardiac arrhythmia should be ruled out. RECOMMENDATIONS: 1. MRI of the brain to rule out any structural cause to explain her problem. 2. Carotid Doppler to assess the stenosis. 3. Electroencephalogram to rule out any electrographic seizures. 4. Blood workup as per the order. 5. Hydration and appropriate antibiotic for her urinary tract infection. 6. Longstanding lumbosacral disk disease associating with the S1 radiculopathy. For her lower back issues, she can do all workup as outpatient. The patient's condition has been well discussed. She agreed with my plan of management. Basilio Villatoro MD
--- NOTE | 2018-02-10 18:54 | US ---
Date of service: 02/10/2018 HISTORY: goiter TECHNIQUE: Sonographic evaluation of the thyroid gland. COMPARISON: None. FINDINGS: RIGHT LOBE: Measures 2.2 x 2.2 x 6.2 cm. Heterogenous echotexture, normal vascularity Nodules: None LEFT LOBE: Measures 2 x 2.3 x 5.4 cm. Heterogenous echotexture, normal vascularity Nodules: None ISTHMUS: Measures 0.6 cm. Heterogenous echotexture, normal vascularity Nodules: None OTHER FINDINGS: None . IMPRESSION: Enlarged, heterogeneous thyroid without focal abnormality.
--- NOTE | 2018-02-10 19:42 | CP.PCM.PN ---
Subjective - Date & Time of Evaluation Date of Evaluation: 02/10/18 Time of Evaluation: 10:00 - Subjective Subjective: clinically same Objective - Vital Signs/Intake and Output Vital Signs (last 24 hours): Temp Pulse Resp BP Pulse Ox 98.3 F 82 20 117/78 97 02/10/18 15:00 02/10/18 16:00 02/10/18 15:00 02/10/18 15:00 02/10/18 15:00 - Medications Medications: Current Medications Acetaminophen/Butalbital/Caffeine (Fioricet) 1 tab PO Q4 PRN PRN Reason: Migraine headache Last Admin: 02/10/18 17:32 Dose: 1 tab Aspirin (Aspirin Chewable) 81 mg PO DAILY [facility] Last Admin: 02/10/18 12:00 Dose: 81 mg Diazepam (Valium) 2 mg PO DAILY PRN PRN Reason: Headache Enoxaparin Sodium (Lovenox) 40 mg SC DAILY [facility] Last Admin: 02/10/18 11:58 Dose: Not Given Pantoprazole Sodium (Protonix Ec Tab) 40 mg PO DAILY [facility] Temazepam (Restoril) 15 mg PO HS PRN PRN Reason: Insomnia Last Admin: 02/09/18 22:36 Dose: 15 mg - Labs Labs: 02/09/18 16:45 02/09/18 16:45 PT 11.1 SECONDS (9.7-12.2) 02/09/18 16:46 INR 1.0 02/09/18 16:46 APTT 27 SECONDS (21-34) 02/09/18 16:46 - Constitutional Appears: Well - Head Exam Head Exam: ATRAUMATIC, NORMAL INSPECTION, NORMOCEPHALIC - Eye Exam Eye Exam: EOMI, Normal appearance, PERRL Pupil Exam: NORMAL ACCOMODATION, PERRL - ENT Exam ENT Exam: Mucous Membranes Moist, Normal Exam - Neck Exam Neck Exam: Full ROM, Normal Inspection. absent: Lymphadenopathy - Respiratory Exam Respiratory Exam: Decreased Breath Sounds - Cardiovascular Exam Cardiovascular Exam: REGULAR RHYTHM, +S1, +S2 - GI/Abdominal Exam GI & Abdominal Exam: Soft, Diminished Bowel Sounds - Rectal Exam Rectal Exam: Deferred
--- NOTE | 2018-02-10 19:49 | CARD ---
APPROVED REPORT Date of service: 02/10/2018 EXAM: Two-dimensional and M-mode echocardiogram with Doppler and color Doppler. Other Information Quality : GoodRhythm : INDICATION Dyspnea Atrial Fibrillation Chest Pain Syncope 2D DIMENSIONS IVSd0.8 (0.7-1.1cm)LVDd4.3 (3.9-5.9cm) PWd0.7 (0.7-1.1cm)LVDs2.5 (2.5-4.0cm) FS (%) 41.6 %LVEF (%)70.0 (>50%) M-Mode DIMENSIONS RVDd2.48 (2.1-3.2cm)Left Atrium (MM)3.31 (2.5-4.0cm) IVSd0.87 (0.7-1.1cm)Aortic Root2.10 (2.2-3.7cm) LVDd4.34 (4.0-5.6cm)Aortic Cusp Exc.1.73 (1.5-2.0cm) PWd0.85 (0.7-1.1cm)FS (%) 46 % LVDs2.34 (2.0-3.8cm)LVEF (%)70 (>50%) Mitral Valve MV E Qzaagazg24.1cm/sMV A Txgynuus84.7cm/sE/A ratio1.8 TDI E/Lateral E'0.0E/Medial E'0.0 Tricuspid Valve TR Peak [id number]/sTR Peak Gr.[id number] LEFT VENTRICLE The left ventricle is normal size. There is normal left ventricular wall thickness. The left ventricular function is normal. The left ventricular ejection fraction is within the normal range. 64% No regional wall motion abnormalities noted. The left ventricular diastolic function is normal. No left ventricle thrombus noted on this study. There is no ventricular septal defect visualized. There is no left ventricular aneurysm. There is no mass noted in the left ventricle. RIGHT VENTRICLE The right ventricle is normal size. There is normal right ventricular wall thickness. The right ventricular systolic function is normal. ATRIA The left atrium size is normal. The right atrium size is normal. The interatrial septum is intact with no evidence for an atrial septal defect. AORTIC VALVE The aortic valve is normal in structure and function. No aortic regurgitation is present. There is no aortic valvular stenosis. There is no aortic valvular vegetation. MITRAL VALVE The mitral valve is normal in structure and function. There is no evidence of mitral valve prolapse. There is no mitral valve stenosis. There is no mitral valve regurgitation noted. TRICUSPID VALVE The tricuspid valve is normal in structure and function. There is no tricuspid valve regurgitation noted. There is no tricuspid valve prolapse or vegetation. There is no tricuspid valve stenosis. PULMONIC VALVE The pulmonary valve is normal in structure and function. There is no pulmonic valvular regurgitation. There is no pulmonic valvular stenosis. GREAT VESSELS The aortic root is normal in size. The ascending aorta is normal in size. The pulmonary artery is normal. The IVC is normal in size and collapses >50% with inspiration. PERICARDIAL EFFUSION The pericardium appears normal. There is no pleural effusion. <Conclusion> Normal left ventricular systolic function and wall motion. Normal Doppler.
--- NOTE | 2018-02-10 20:47 | CARD ---
APPROVED REPORT Date of service: 02/09/2018 EKG Measurement Heart [id number] <Conclusion> Normal sinus rhythm Possible Left atrial enlargement Borderline ECG
--- NOTE | 2018-02-11 00:33 | CON ---
Copied To: Marbin Campbell MD Attending MD: Marbin Campbell MD DATE: 02/10/2018 CARDIOLOGY CONSULTATION REASON FOR CONSULTATION: Near syncope. HISTORY OF PRESENT ILLNESS: The patient is a 47-year-old female who was diagnosed with Graves' disease, but takes no medications. She was working in [employer] office yesterday, reporting reasonable temperature inside the office; however, she had some questions about the air quality. She started to feel dizzy and weak. She moved to another room. However, she became nauseous and about to faint. She assisted herself to a chair and lowered the height down between her legs, avoided complete collapse, and according to her, almost never lost consciousness. However, her eyes blacked out completely for few seconds. The patient does not recall experiencing palpitation. Denied any chest pain, and she sustained no fall. The patient does not report similar episode in the past. The patient was on no medications at home. PAST MEDICAL HISTORY: History of section, history of ectopic , and history of surgery for deviated nasal septum. SOCIAL HISTORY: Nonsmoker and nondrinker. She works in [email or web address]. MEDICATIONS IN THE HOSPITAL: Current hospital medications are aspirin 81 mg a day, Lovenox 40 mg subcutaneously once a day, Protonix 40 mg once a day, and Restoril 10 mg p.o. at bedtime. REVIEW OF SYSTEMS: The patient did experience nausea, but no vomiting. She did experience abdominal discomfort. PHYSICAL EXAMINATION: GENERAL: The patient is an elderly female, who does not appear to be in any distress. VITAL SIGNS: Blood pressure 121/79, heart rate 69, temperature 98.1, and respirations 20. HEENT: Normocephalic. NECK: Diffuse goiter is noted. CHEST: Clear. HEART: S1, S2 regular. ABDOMEN: Soft. EXTREMITIES: No edema. LABORATORY DATA: CBC: WBC 7.3, hemoglobin 15.7, hematocrit 39.8, and platelet count 182,000. SMA-7, sodium 138, potassium 3.8, chloride 104, CO2 of 24, glucose 118, BUN 15, and creatinine 0.5. Three sets of troponins are negative. A beta HCG quantitative is less than 2.39. TSH level is 2.27. D-dimer is 5.82. PT, PTT, and INR are within normal limits. Chest CT angio is unremarkable. No pulmonary embolism. A CT scan without contrast, normal study. Brain MRI, no acute intracranial abnormality. Chest x-ray is unremarkable. EKG revealed sinus rhythm at rate of 69, possible left atrial enlargement. ASSESSMENT: 1. Dizziness and near syncope, Consider Vaso Vagal etiology 2. Diffuse goiter and hyperthyroidism. 3. R/O Neuro Syncope RECOMMENDATIONS: Continue aspirin 81 mg once a day and subcutaneous Lovenox 40 mg once a day. Obtain free T3 and free T4. Obtain thyroid ultrasound. I will follow carotid Doppler study and echocardiographic study. Marbin Campbell MD MTDSandra
[2018-02-11] MEDS: Pantoprazole 40 mg EC Tab PO SCH (10:35)
[2018-02-11] MEDS: Enoxaparin 40 mg Syringe SC SCH (10:36)
[2018-02-11] MEDS: Apap-Butalbital-Caffeine 325-50-40mg Tab PO PRN ×3 (10:51→23:42)
--- NOTE | 2018-02-11 13:52 | CP.PCM.PN ---
Subjective - Date & Time of Evaluation Date of Evaluation: 02/11/18 Time of Evaluation: 09:20 - Subjective Subjective: clinically same Objective - Vital Signs/Intake and Output Vital Signs (last 24 hours): Temp Pulse Resp BP Pulse Ox 98.1 F 66 18 122/77 99 02/11/18 07:25 02/11/18 07:25 02/11/18 07:25 02/11/18 07:25 02/11/18 07:25 Intake and Output: 02/11/18 02/11/18 06:59 18:59 Intake Total 420 Balance 420 - Medications Medications: Current Medications Acetaminophen/Butalbital/Caffeine (Fioricet) 1 tab PO Q4 PRN PRN Reason: Migraine headache Last Admin: 02/11/18 10:51 Dose: 1 tab Aspirin (Aspirin Chewable) 81 mg PO DAILY [facility] Last Admin: 02/11/18 10:35 Dose: 81 mg Diazepam (Valium) 2 mg PO DAILY PRN PRN Reason: Headache Last Admin: 02/10/18 21:15 Dose: 2 mg Enoxaparin Sodium (Lovenox) 40 mg SC DAILY [facility] Last Admin: 02/11/18 10:36 Dose: Not Given Ceftriaxone Sodium 1 gm/ (Sodium Chloride) 100 mls @ 200 mls/hr IVPB DAILY [facility] PRN Reason: Protocol Last Admin: 02/11/18 10:34 Dose: 200 mls/hr Pantoprazole Sodium (Protonix Ec Tab) 40 mg PO DAILY [facility] Last Admin: 02/11/18 10:35 Dose: 40 mg Temazepam (Restoril) 15 mg PO HS PRN PRN Reason: Insomnia Last Admin: 02/10/18 22:08 Dose: 15 mg - Labs Labs: 02/09/18 16:45 02/09/18 16:45 PT 11.1 SECONDS (9.7-12.2) 02/09/18 16:46 INR 1.0 02/09/18 16:46 APTT 27 SECONDS (21-34) 02/09/18 16:46 - Constitutional Appears: Well - Head Exam Head Exam: ATRAUMATIC, NORMAL INSPECTION, NORMOCEPHALIC - Eye Exam Eye Exam: EOMI, Normal appearance, PERRL Pupil Exam: NORMAL ACCOMODATION, PERRL - ENT Exam ENT Exam: Mucous Membranes Moist, Normal Exam - Neck Exam Neck Exam: Full ROM, Normal Inspection. absent: Lymphadenopathy - Respiratory Exam Respiratory Exam: Decreased Breath Sounds - Cardiovascular Exam Cardiovascular Exam: REGULAR RHYTHM, +S1, +S2 - GI/Abdominal Exam GI & Abdominal Exam: Soft, Diminished Bowel Sounds - Rectal Exam Rectal Exam: Deferred
[2018-02-11 14:52] LABS: T4 12.2 ug/dL (5.5-11.0)
[2018-02-11 15:11] LABS: T3 2.73 nmol/L (1.49-2.60)
--- NOTE | 2018-02-11 21:25 | PN ---
Copied To: Marbin Campbell MD Attending MD: Marbin Campbell MD DATE: 02/09/2018 SUBJECTIVE: The patient denies any dizziness, palpitation, or shortness of breath. She admitted to me that she was placed on Tapazole on and off for almost one year when she was diagnosed with hyperthyroidism a few years ago. In addition, she did report palpitation and loss of weight at the time of diagnosing her with Graves disease. The patient was taken off Tapazole after one year of treatment. No reported atrial fibrillation on her monitor. PHYSICAL EXAMINATION: VITAL SIGNS: Blood pressure 122/67, heart rate 66, temperature 98.1, respirations 18. HEENT: Normocephalic. NECK: No JVD. CHEST: Clear. HEART: S1 and S2 regular. ABDOMEN: Soft. EXTREMITIES: No edema. LABORATORY DATA: Free T4 is elevated at 2.33, total T3 is elevated at 12.2, TSH level is below normal at 0.07, T3 level is elevated at 2.73. Thyroid ultrasound, enlarged, heterogeneous thyroid without focal abnormality. ASSESSMENT: 1. Status post near syncope episode. 2. Graves disease. 3. Mild hyperthyroidism. RECOMMENDATIONS: Continue aspirin 81 mg once a day, IV Rocephin at 1 g daily, Lovenox 20 mg subcutaneous once a day, Restoril at 15 mg at bedtime, Consider endocrine evaluation. Marbin Campbell MD
[2018-02-12] MEDS: Enoxaparin 40 mg Syringe SC SCH (09:52)
[2018-02-12] MEDS: Pantoprazole 40 mg EC Tab PO SCH (09:52)
--- NOTE | 2018-02-12 13:33 | CP.PCM.PN ---
Subjective - Date & Time of Evaluation Date of Evaluation: 02/12/18 Time of Evaluation: 09:40 - Subjective Subjective: clinically same Objective - Vital Signs/Intake and Output Vital Signs (last 24 hours): Temp Pulse Resp BP Pulse Ox 97.9 F 78 20 101/66 97 02/12/18 07:25 02/12/18 07:25 02/12/18 07:25 02/12/18 07:25 02/12/18 07:25 Intake and Output: 02/12/18 02/12/18 06:59 18:59 Intake Total 600 Balance 600 - Medications Medications: Current Medications Acetaminophen/Butalbital/Caffeine (Fioricet) 1 tab PO Q4 PRN PRN Reason: Migraine headache Last Admin: 02/11/18 23:42 Dose: 1 tab Aspirin (Aspirin Chewable) 81 mg PO DAILY [facility] Last Admin: 02/12/18 09:52 Dose: 81 mg Diazepam (Valium) 2 mg PO DAILY PRN PRN Reason: Headache Last Admin: 02/10/18 21:15 Dose: 2 mg Enoxaparin Sodium (Lovenox) 40 mg SC DAILY [facility] Last Admin: 02/12/18 09:52 Dose: Not Given Ceftriaxone Sodium 1 gm/ (Sodium Chloride) 100 mls @ 200 mls/hr IVPB DAILY [facility]AYDE PRN Reason: Protocol Last Admin: 02/12/18 09:52 Dose: 200 mls/hr Pantoprazole Sodium (Protonix Ec Tab) 40 mg PO DAILY [facility] Last Admin: 02/12/18 09:52 Dose: 40 mg Temazepam (Restoril) 15 mg PO HS PRN PRN Reason: Insomnia Last Admin: 02/11/18 23:42 Dose: 15 mg - Labs Labs: 02/09/18 16:45 02/09/18 16:45 PT 11.1 SECONDS (9.7-12.2) 02/09/18 16:46 INR 1.0 02/09/18 16:46 APTT 27 SECONDS (21-34) 02/09/18 16:46 - Constitutional Appears: Well - Head Exam Head Exam: ATRAUMATIC, NORMAL INSPECTION, NORMOCEPHALIC - Eye Exam Eye Exam: EOMI, Normal appearance, PERRL Pupil Exam: NORMAL ACCOMODATION, PERRL - ENT Exam ENT Exam: Mucous Membranes Moist, Normal Exam - Neck Exam Neck Exam: Full ROM, Normal Inspection. absent: Lymphadenopathy - Respiratory Exam Respiratory Exam: Decreased Breath Sounds - Cardiovascular Exam Cardiovascular Exam: REGULAR RHYTHM, +S1, +S2 - GI/Abdominal Exam GI & Abdominal Exam: Soft, Diminished Bowel Sounds - Rectal Exam Rectal Exam: Deferred
[2018-02-12] MEDS: Apap-Butalbital-Caffeine 325-50-40mg Tab PO PRN (16:12)
[2018-02-12 16:56] VITALS: O2SAT 99
--- NOTE | 2018-02-12 20:43 | PN ---
DATE: 02/12/2018 SUBJECTIVE: The patient denies any shortness of breath, dizziness, or palpitation. PHYSICAL EXAMINATION VITAL SIGNS: Blood pressure 134/76, heart rate 69, temperature 97.6, and respirations 20. HEENT: Normocephalic. CHEST: Clear. HEART: S1 and S2 regular. ABDOMEN: Soft. EXTREMITIES: No edema. ASSESSMENT: 1. Near syncopal episode. 2. Graves disease with goiter and mild hyperthyroidism. 3. History of migraine headache. RECOMMENDATIONS: Continue aspirin 81 mg once a day, IV Rocephin at 1 g daily, Fioricet at one tablet every 4 hours p.r.n., Protonix 40 mg p.o. once a day, and g p.o. daily p.r.n. for headache. Marbin Campbell MD
[2018-02-13] MEDS: Apap-Butalbital-Caffeine 325-50-40mg Tab PO PRN (00:02)
[2018-02-13 08:28] VITALS: BP 133/75; RESP 18; TEMP 98.2
[2018-02-13] MEDS: Pantoprazole 40 mg EC Tab PO SCH (09:21)
[2018-02-13] MEDS: Enoxaparin 40 mg Syringe SC SCH ×2 (09:21→09:22)
--- NOTE | 2018-02-13 11:06 | CP.PCM.PN ---
Subjective - Date & Time of Evaluation Date of Evaluation: 02/13/18 Time of Evaluation: 11:06 - Subjective Subjective: PGY-[address] Pelon Ruth Patient seen and examined at bedside. Per nursing, no acute events occurred overnight. Patient does report an improvement in the migraine headaches since Tuesday. She reports an improvement in the sensation that the room is spinning. She denies any chest pain, abdominal pain, changes in vision, chills, cough , sore throat, chest pain, or any other complaints. Objective - Vital Signs/Intake and Output Vital Signs (last 24 hours): Temp Pulse Resp BP Pulse Ox 98.2 F 72 18 133/75 99 02/13/18 07:00 02/13/18 07:00 02/13/18 07:00 02/13/18 07:00 02/13/18 07:00 - Medications Medications: Current Medications Acetaminophen/Butalbital/Caffeine (Fioricet) 1 tab PO Q4 PRN PRN Reason: Migraine headache Last Admin: 02/13/18 00:02 Dose: 1 tab Aspirin (Aspirin Chewable) 81 mg PO DAILY [facility] Last Admin: 02/13/18 09:21 Dose: 81 mg Diazepam (Valium) 2 mg PO DAILY PRN PRN Reason: Headache Last Admin: 02/13/18 00:02 Dose: 2 mg Enoxaparin Sodium (Lovenox) 40 mg SC DAILY [facility] Last Admin: 02/13/18 09:22 Dose: Not Given Ceftriaxone Sodium 1 gm/ (Sodium Chloride) 100 mls @ 200 mls/hr IVPB DAILY JAYDE PRN Reason: Protocol Last Admin: 02/13/18 09:21 Dose: 200 mls/hr Pantoprazole Sodium (Protonix Ec Tab) 40 mg PO DAILY [facility] Last Admin: 02/13/18 09:21 Dose: 40 mg Temazepam (Restoril) 15 mg PO HS PRN PRN Reason: Insomnia Last Admin: 02/11/18 23:42 Dose: 15 mg - Labs Labs: 02/09/18 16:45 02/09/18 16:45 PT 11.1 SECONDS (9.7-12.2) 02/09/18 16:46 INR 1.0 02/09/18 16:46 APTT 27 SECONDS (21-34) 02/09/18 16:46 - Head Exam Head Exam: ATRAUMATIC, NORMAL INSPECTION, NORMOCEPHALIC - Eye Exam Eye Exam: EOMI, Normal appearance, PERRL Pupil Exam: NORMAL ACCOMODATION - ENT Exam ENT Exam: Mucous Membranes Moist, Normal Oropharynx - Respiratory Exam Respiratory Exam: Clear to Ausculation Bilateral, NORMAL BREATHING PATTERN. absent: Prolonged Expiratory Phase, Respiratory Distress - Cardiovascular Exam Cardiovascular Exam: REGULAR RHYTHM, +S1, +S2 - GI/Abdominal Exam GI & Abdominal Exam: Soft, Normal Bowel Sounds - Extremities Exam Extremities Exam: Full ROM, Normal Inspection - Back Exam Back Exam: NORMAL INSPECTION. absent: CVA tenderness (R), paraspinal tenderness - Neurological Exam Neurological Exam: Alert, Awake, CN II-XII Intact - Psychiatric Exam Psychiatric exam: Normal Affect, Normal Mood - Skin Skin Exam: Dry, Intact Assessment and Plan - Assessment and Plan (Free Text) Plan: 1. ?Syncope -Neurology Dr. Villatoro consulted. Help appreciated -Cardiology Dr. Campbell consulted :Continue Aspirin 81 mg PO Daily :Fioricet 1 tab q4 PRN -Carotid duplex taken :16-49% stenosis of the right proximal and distal ICA with minimal hemodynamic significance :16-49% stenosis of left mid ICA with minimal hemodynamic significance Brain MRI: negative Head CT : NEGATIVE Echo: :EF-70%, normal LV systolic function and wall motion EEG:Normal 2. Graves disease -TSH:.07 -Free T4 2.33 -Thyroid ultrasound: enlarged, heterogenous thyroid without focal abnormality -Patient non-compliant with Methimazole medication. 3. Diverticulosis -No intervention at this time 4.Migraines -Fiorcet 1 Tab q6 prn 5. UTI -IV Rocephin 1mg Q24 PPX Protonix 40mg IVP Daily Lovenox 40 mg SC Daily Dispo: Patient stable for discharge today. Discharge Instructions: 1. Follow up with PMD within 5 to 7 days upon discharge. 2.Follow up with Building Coordinator within 5 to 7 days upon discharge 3. Return to hospital for any new or worsening symptoms. Medications: 1.Antivert 12.5mg PO Q12, #60, No refills. 2.Nitrofurantoin 100mg PO BID, #10, No refills 3.Fiorcet 1 TAB Q6, #14, No refills 4. Aspirin 81mg PO Daily, #30, No refills 2. Patient's thyroid levels are non-controlled. Patient was advised during her visit to adhere to treatment. Patient states she doesn't like the way the medicine makes her feel and stopped taking the medicine for her thyroid. Discussed in detail the risks involved with not adhering to medication regimen including and demise. Advised patient to follow up with Building Coordinator as an outpatient to restart Methimazole. Patient states she does have an motor electrician that she would follow up with upon discharge. All management per Dr. Pelon Ruth.
--- NOTE | 2018-02-13 11:56 | PN ---
Copied To: Basilio Villatoro MD Attending MD: Basilio Villatoro MD DATE: 02/13/2018 NEUROLOGICAL PROBLEM: Near syncopal attack and lumbosacral radiculopathy. PHYSICAL EXAMINATION: VITAL SIGNS: Blood pressure 103/65, mean arterial pressure 77, respiratory rate 18, pulse rate 69 and regular, temperature 98 degrees Fahrenheit. The patient is sleepy, arousable on calling her first name. No new episodes of syncopal or near syncopal episode during her hospitalization. Her workup is completed. Her examination is unchanged to compare with my previous examination. MRI of the brain has been reviewed. No acute pathology or space occupying lesion is noted. EEG, normal bilateral cerebral activities. Her blood workup, hypothyroidism should be corrected with thyroid supplement. Her existing lumbosacral radiculopathy can be evaluated as outpatient and further recommendation will be provided while she is seeing me as outpatient. Basilio Villatoro MD
--- NOTE | 2018-02-13 13:07 | VASCLAB ---
Date of service: 02/10/2018 PROCEDURE: HISTORY: ASSESS STENOSIS COMPARISON: None available. TECHNIQUE: Grayscale and duplex Doppler evaluation of the cervical carotid and vertebral arteries were performed. The common carotid, carotid bifurcations and cervical Internal Carotid Artery (ICA) and proximal External Carotid Artery (ECA) were evaluated. The vertebral arteries were evaluated for gross patency and flow direction. Report prepared by Vince Pantoja, BS, RVT FINDINGS: RIGHT CAROTID ARTERIES: 1. Common Carotid Artery: No significant focal plaque formation of the right common carotid artery. Maximum Peak Systolic velocity: 102 cm/sec: End-diastolic velocity 25 cm/sec. 2. Carotid Bifurcation: plaque formation. Maximum Peak Systolic velocity: 88 cm/sec: End-diastolic velocity 25 cm/sec. 3. Internal Carotid Artery: Plaque description: 3.1. Proximal Segment: Peak systolic velocity 99 cm/sec: End-diastolic velocity 40 cm/sec - % stenosis 16-49% 3.2. Middle Segment: Peak systolic velocity 91 cm/sec: End-diastolic velocity 35 cm/sec - % stenosis 0-15% 3.3. Distal Segment: Peak systolic velocity 109 cm/sec: End-diastolic velocity 44 cm/sec - % stenosis 16-49% 4. External Carotid Artery: No significant focal plaque formation. Peak systolic velocity 92 cm/sec 5. ICA/CCA Ratio: 1.1 LEFT CAROTID ARTERIES: 1. Common Carotid Artery: No significant focal plaque formation of the left common carotid artery. Maximum Peak Systolic velocity: 108 cm/sec: End-diastolic velocity 28 cm/sec. 2. Carotid Bifurcation: plaque formation. Maximum Peak Systolic velocity: 74 cm/sec: End-diastolic velocity 20 cm/sec. 3. Internal Carotid Artery: Plaque description: 3.1. Proximal Segment: Peak systolic velocity 109 cm/sec: End-diastolic velocity 35 cm/sec - % stenosis 0-15% 3.2. Middle Segment: Peak systolic velocity 117 cm/sec: End-diastolic velocity 45 cm/sec - % stenosis 16-49% 3.3. Distal Segment: Peak systolic velocity 124 cm/sec: End-diastolic velocity 38 cm/sec - % stenosis 0-15% 4. External Carotid Artery: No significant focal plaque formation. Peak systolic velocity 114 cm/sec 5. ICA/CCA Ratio: 1.2 VERTEBRAL ARTERIES: 1. Right Vertebral Artery: The right vertebral artery flow direction is antegrade. 2. Left Vertebral Artery: The left vertebral artery flow direction is antegrade. OTHER FINDINGS: 1. Right Brachial Blood pressure: 120 mmHg. 2. Left Brachial Blood pressure: 120 mmHg. IMPRESSION: RIGHT: 16-49% stenosis of the right proximal and distal ICA with minimal hemodynamic significance. LEFT: 16-49% stenosis of the left mid ICA with minimal hemodynamic significance.
[2018-02-13 14:08] VITALS: PULSE 76
== END 2018-02-13 14:40 | disposition home or self-care (01) | DRG 312 ==
LOC: C.ER 14:36 → C.9E 18:53 → INTOOBSV 18:53 → OBSVTOIN 18:53 → UNDOADMOB 18:53 → C.9E 20:23 → C.6T 20:23 → OBSVTOIN 02-12 15:01 → C.6T 02-12 15:01
PROVIDERS: ADMIT Internal Medicine Nephrology; ATTEND Internal Medicine Nephrology
DX: R55 Syncope and collapse (principal); N39.0 Urinary tract infection, site not specified; R56.9 Unspecified convulsions; R79.1 Abnormal coagulation profile; Z87.891 Personal history of nicotine dependence; M54.17 Radiculopathy, lumbosacral region; E05.00 Thyrotoxicosis with diffuse goiter without thyrotoxic crisis or storm; G43.909 Migraine, unspecified, not intractable, without status migrainosus; Z72.820 Sleep deprivation